=== PATIENT | female | born 1985 | race Two or more races ===

== ENCOUNTER 2018-10-26 14:27 | Outpatient (CLI) | payer OTHER | END 2018-10-26 23:59 | disposition home or self-care (01) | LOC: RAD 14:27 | DX: Z11.1 Encounter for screening for respiratory tuberculosis (principal); R76.11 Nonspecific reaction to tuberculin skin test without active tuberculosis | CPT/HCPCS: 71046 ==

== ENCOUNTER 2020-03-17 09:36 | Emergency (ER) | payer BC, OTHER ==
[~2020-03-17] VITALS: Ht 167.6 cm; Wt 75.0 kg
[2020-03-17] MEDS ORDERED: orphenadrine citrate 60mg/2ml inj. IM ONE (10:55)
[2020-03-17] MEDS ORDERED: ketorolac tromethamine 15mg/ml inj. IM ONE (10:55)
[2020-03-17] MEDS ORDERED: METH-360 PO (11:15)
[2020-03-17] MEDS ORDERED: NAPR-56 PO (11:15)
[2020-03-17 11:27] VITALS: BP 115/66
== END 2020-03-17 11:29 | disposition home or self-care (01) ==
LOC: ER 09:36 → EEVIPCON 09:36 → ER 11:29
DX: S39.012A Strain of muscle, fascia and tendon of lower back, initial encounter (principal); Z79.899 Other long term (current) drug therapy; X50.1XXA Overexertion from prolonged static or awkward postures, initial encounter; Y93.89 Activity, other specified; Y92.89 Other specified places as the place of occurrence of the external cause; Y99.8 Other external cause status
CPT/HCPCS: 96372; 99284; J1885; J2360

== ENCOUNTER 2020-03-19 12:04 | Outpatient (CLI) | payer BC ==
[~2020-03-19 12:04] MED LIST: METH-360 PO; NAPR-56 PO
== END 2020-03-19 23:59 | disposition home or self-care (01) ==
LOC: RAD 12:04
PROVIDERS: ATTEND Nurse Practitioner
DX: M47.817 Spondylosis without myelopathy or radiculopathy, lumbosacral region (principal); M51.27 Other intervertebral disc displacement, lumbosacral region
CPT/HCPCS: 72110; 72120; 72148

== ENCOUNTER 2020-03-25 09:41 | Outpatient (CLI) | payer BC | END 2020-03-25 23:59 | disposition home or self-care (01) | LOC: LAB 09:41 | PROVIDERS: ATTEND Specialist | DX: E06.3 Autoimmune thyroiditis (principal) | CPT/HCPCS: 36415; 84443 ==

== ENCOUNTER 2020-05-11 11:54 | Outpatient (CLI) | payer BC ==
[~2020-05-11 11:54] MED LIST changes: -NAPR-56 PO
[2020-05-11 13:03] LABS: ALANINE AMINOTRANSFERASE 21 U/L (12-78); ALBUMIN 3.8 G/DL (3.4-5.0); ALKALINE PHOSPHATASE 56 IU/L (46-116); ANION GAP 7 (8-16); ASPARTATE AMINO TRANSFERASE 15 U/L (10-37); BILIRUBIN,TOTAL 0.3 MG/DL (0.1-1.0); BLOOD UREA NITROGEN 8 MG/DL (7-18); BUN/CREATININE RATIO 12.3 (6.6-38.0); CALCIUM 9.1 MG/DL (8.5-10.1); CHLORIDE 103 MMOL/L (99-107); CHOL/HDL RATIO 4.8 (0.00-4.99); CHOLESTEROL 242 MG/DL (0-200); CREATININE 0.65 MG/DL (0.40-0.90); GLUCOSE 94 MG/DL (70-104); HDL CHOLESTEROL 50 MG/DL (35-60); LDL CHOLESTEROL 166 MG/DL (50-100); POTASSIUM 3.9 MMOL/L (3.5-5.1); SODIUM 138 MMOL/L (135-145); TOTAL CARBON DIOXIDE 28.1 MMOL/L (24-32); TOTAL PROTEIN 7.8 G/DL (6.4-8.2); TRIGLYCERIDES 100 MG/DL (20-135); eGFR > 90 ML/MIN
[2020-05-11 14:29] LABS: BASOPHILS # (AUTO) 0.1 X10'3 (0-0.2); BASOPHILS % (AUTO) 0.9 % (0-1); EOSINOPHILS # (AUTO) 0.2 X10'3 (0-0.9); EOSINOPHILS % (AUTO) 1.9 % (0-6); HEMATOCRIT 36.8 % (35.0-45.0); HEMOGLOBIN 12.3 g/dl (12.0-16.0); LYMPHOCYTES # (AUTO) 1.7 X10'3 (1.1-4.8); LYMPHOCYTES % (AUTO) 17.8 % (21-51); MEAN CORPUSCULAR HEMOGLOBIN 30.7 PG (27.0-31.0); MEAN CORPUSCULAR HGB CONC 33.3 g/dL (33.0-36.5); MEAN CORPUSCULAR VOLUME 92.2 FL (78-98); MEAN PLATELET VOLUME 7.4 FL (7.4-10.4); MONOCYTES # (AUTO) 0.4 X10'3 (0-0.9); NEUTROPHILS # (AUTO) 7.1 X10'3 (1.8-7.7); NEUTROPHILS % (AUTO) 75.4 % (42-75); PLATELET COUNT 409 X10'3 (140-440); RED BLOOD COUNT 3.99 X10'6 (4.20-5.60); RED CELL DISTRIBUTION WIDTH 12.5 % (11.5-14.5); WHITE BLOOD COUNT 9.4 X10'3 (4.5-11.0)
[2020-05-13 12:05] LABS: IMMUNOGLOBULIN A, QN, SERUM 422 mg/dL (87-352)
== END 2020-05-11 23:59 | disposition home or self-care (01) ==
LOC: LAB 11:54
PROVIDERS: ATTEND Family Medicine
DX: Z00.00 Encounter for general adult medical examination without abnormal findings (principal); Z76.89 Persons encountering health services in other specified circumstances
CPT/HCPCS: 36415; 80053; 80061; 82784; 84439; 84443; 85025

== ENCOUNTER 2020-06-03 11:40 | Outpatient (CLI) | payer BC ==
[2020-06-03 13:49] LABS: RHEUM FACTOR QUAL REFLEX TITER NEGATIVE (Neg)
== END 2020-06-03 23:59 | disposition home or self-care (01) ==
LOC: EEVIPCON → LAB 11:40
PROVIDERS: ATTEND Family Medicine
DX: R76.8 Other specified abnormal immunological findings in serum (principal)
CPT/HCPCS: 36415; 86038; 86430

== ENCOUNTER 2020-06-08 08:41 | Outpatient (CLI) | payer BC | END 2020-06-08 23:59 | disposition home or self-care (01) | LOC: EEVIPCON → RAD 08:41 | PROVIDERS: ATTEND Internal Medicine Gastroenterology | DX: K59.00 Constipation, unspecified (principal) | CPT/HCPCS: 74018 ==

== ENCOUNTER 2020-10-22 09:22 | Outpatient (CLI) | payer BC ==
[~2020-10-22 09:22] MED LIST changes: +iohexol 300mg/ml 100ml inj. ONE
[2020-10-22] MEDS ORDERED: iohexol 300mg/ml 100ml inj. ONE (09:52)
[2020-10-22 11:09] LABS: CLARITY,URINE SLIGHTLY CLOUDY (Clear); COLOR,URINE STRAW (Yellow); GLUCOSE, URINE NEGATIVE (Neg); KETONES,URINE NEGATIVE (Neg); LEUKOCYTE ESTERASE ,URINE NEGATIVE (Neg); NITRITES, URINE NEGATIVE (Neg); OCCULT BLOOD,URINE NEGATIVE (Neg); PROTEIN,URINE NEGATIVE (Neg); UROBILINOGEN,URINE 0.2 E.U/dL (0.2-1.0)
[2020-10-22 11:19] LABS: UA COLLECTION TYPE NON-SPECIFIED
[2020-10-22 11:20] LABS: SQUAMOUS EPITHELIAL CELL,UR MANY /LPF (FEW)
[2020-10-22 11:21] LABS: BACTERIA,URINE FEW /HPF (Neg); RBC,URINE NONE SEEN /HPF (0-2); WBC,URINE NONE SEEN /HPF (0-4)
[2020-10-22 12:24] LABS: BASOPHILS # (AUTO) 0.1 X10'3 (0-0.2); BASOPHILS % (AUTO) 1.2 % (0-1); EOSINOPHILS # (AUTO) 0.1 X10'3 (0-0.9); EOSINOPHILS % (AUTO) 1.9 % (0-6); HEMATOCRIT 36.9 % (35.0-45.0); HEMOGLOBIN 12.3 g/dl (12.0-16.0); LYMPHOCYTES # (AUTO) 1.6 X10'3 (1.1-4.8); LYMPHOCYTES % (AUTO) 21.1 % (21-51); MEAN CORPUSCULAR HEMOGLOBIN 30.3 PG (27.0-31.0); MEAN CORPUSCULAR HGB CONC 33.3 g/dL (33.0-36.5); MEAN PLATELET VOLUME 7.5 FL (7.4-10.4); MONOCYTES # (AUTO) 0.5 X10'3 (0-0.9); MONOCYTES % (AUTO) 6.2 % (2-12); NEUTROPHILS # (AUTO) 5.4 X10'3 (1.8-7.7); NEUTROPHILS % (AUTO) 69.6 % (42-75); PLATELET COUNT 377 X10'3 (140-440); RED BLOOD COUNT 4.05 X10'6 (4.20-5.60); RED CELL DISTRIBUTION WIDTH 12.5 % (11.5-14.5); WHITE BLOOD COUNT 7.8 X10'3 (4.5-11.0)
[2020-10-22 12:45] LABS: ALANINE AMINOTRANSFERASE 23 U/L (12-78); ALBUMIN 3.8 G/DL (3.4-5.0); ALBUMIN/GLOBULIN RATIO 0.9 (1.1-1.5); ALKALINE PHOSPHATASE 66 IU/L (46-116); ANION GAP 11 (8-16); ASPARTATE AMINO TRANSFERASE 16 U/L (10-37); BILIRUBIN,TOTAL 0.4 MG/DL (0.1-1.0); BLOOD UREA NITROGEN 8 MG/DL (7-18); CALCIUM 8.8 MG/DL (8.5-10.1); CHLORIDE 102 MMOL/L (99-107); CHOL/HDL RATIO 4.5 (0.00-4.99); CHOLESTEROL 254 MG/DL (0-200); CREATININE 0.73 MG/DL (0.40-0.90); GLUCOSE 97 MG/DL (70-104); HDL CHOLESTEROL 57 MG/DL (35-60); LDL CHOLESTEROL 180 MG/DL (50-100); POTASSIUM 3.8 MMOL/L (3.5-5.1); SODIUM 140 MMOL/L (135-145); TOTAL CARBON DIOXIDE 27.4 MMOL/L (24-32); TOTAL PROTEIN 7.9 G/DL (6.4-8.2); TRIGLYCERIDES 71 MG/DL (20-135); eGFR > 90 ML/MIN
== END 2020-10-22 23:59 | disposition home or self-care (01) ==
LOC: 64 CT 09:22
PROVIDERS: ATTEND Family Medicine
DX: Z00.00 Encounter for general adult medical examination without abnormal findings (principal); R10.32 Left lower quadrant pain; M51.37 Other intervertebral disc degeneration, lumbosacral region
CPT/HCPCS: 36415; 74177; 80053; 80061; 81001; 82306; 84439; 84443; 85025; Q9967

== ENCOUNTER 2020-10-22 09:28 | Outpatient (CLI) | payer BC ==
[~2020-10-22 09:28] MED LIST changes: -iohexol 300mg/ml 100ml inj. ONE
[2020-10-22 13:10] LABS: HIV ANTIBODY 1&2 RAPID NON-REACTIVE (Neg)
[2020-10-23 09:05] LABS: LUTEINIZING HORMONE 72.4 mIU/mL (.); PROLACTIN 21.9 ng/mL (4.8-23.3)
== END 2020-10-22 23:59 | disposition home or self-care (01) ==
LOC: LAB 09:28
PROVIDERS: ATTEND Specialist
DX: Z01.419 Encounter for gynecological examination (general) (routine) without abnormal findings (principal)
CPT/HCPCS: 36415; 83001; 83002; 84146; 86703; 87491

== ENCOUNTER 2021-03-01 09:49 | Outpatient (CLI) | payer BC | END 2021-03-01 23:59 | disposition home or self-care (01) | LOC: LAB 09:49 | PROVIDERS: ATTEND Specialist | DX: E06.3 Autoimmune thyroiditis (principal) | CPT/HCPCS: 36415; 84443 ==

== ENCOUNTER 2021-06-22 09:35 | Emergency (ER) | payer BC ==
[~2021-06-22] VITALS: Ht 167.6 cm; Wt 75.0 kg
[2021-06-22 09:38] VITALS: BP 125/65
[2021-06-22 10:38] LABS: BASOPHILS # (AUTO) 0.1 X10'3 (0-0.2); EOSINOPHILS # (AUTO) 0.2 X10'3 (0-0.9); EOSINOPHILS % (AUTO) 2.4 % (0-6); HEMATOCRIT 37.4 % (35.0-45.0); HEMOGLOBIN 12.5 g/dl (12.0-16.0); LYMPHOCYTES # (AUTO) 1.3 X10'3 (1.1-4.8); LYMPHOCYTES % (AUTO) 15.9 % (21-51); MEAN CORPUSCULAR HEMOGLOBIN 30.9 PG (27.0-31.0); MEAN CORPUSCULAR HGB CONC 33.4 g/dL (33.0-36.5); MEAN CORPUSCULAR VOLUME 92.4 FL (78-98); MEAN PLATELET VOLUME 7.5 FL (7.4-10.4); MONOCYTES # (AUTO) 0.5 X10'3 (0-0.9); MONOCYTES % (AUTO) 6.7 % (2-12); NEUTROPHILS # (AUTO) 5.9 X10'3 (1.8-7.7); PLATELET COUNT 370 X10'3 (140-440); RED BLOOD COUNT 4.05 X10'6 (4.20-5.60); RED CELL DISTRIBUTION WIDTH 12.4 % (11.5-14.5)
[2021-06-22 10:49] LABS: ASPARTATE AMINO TRANSFERASE 14 U/L (10-37); BILIRUBIN,TOTAL 0.4 MG/DL (0.1-1.0); BLOOD UREA NITROGEN 10 MG/DL (7-18); BUN/CREATININE RATIO 11.6 (6.6-38.0); CALCIUM 9.2 MG/DL (8.5-10.1); CHLORIDE 104 MMOL/L (99-107); CREATININE 0.86 MG/DL (0.40-0.90); GLUCOSE 115 MG/DL (70-104); POTASSIUM 4.2 MMOL/L (3.5-5.1); TOTAL CARBON DIOXIDE 28.5 MMOL/L (24-32); eGFR 75 ML/MIN
[2021-06-22 10:57] LABS: ALANINE AMINOTRANSFERASE 23 U/L (12-78); ALBUMIN 3.8 G/DL (3.4-5.0); ALBUMIN/GLOBULIN RATIO 0.9 (1.1-1.5); ALKALINE PHOSPHATASE 60 IU/L (46-116); ANION GAP 7 (8-16); SODIUM 139 MMOL/L (135-145)
== END 2021-06-22 12:03 | disposition home or self-care (01) ==
LOC: ER 09:35 → EEVIPCON 09:35 → ER 12:03
DX: R07.89 Other chest pain (principal); M79.602 Pain in left arm; R51.9 Headache, unspecified; F41.9 Anxiety disorder, unspecified; Z79.899 Other long term (current) drug therapy
CPT/HCPCS: 36415; 71045; 80053; 84443; 84484; 85025; 93005; 99285

== ENCOUNTER 2021-07-01 09:26 | Outpatient (CLI) | payer BC ==
[2021-07-01 11:25] LABS: D-DIMER < 0.19 MG/L FEU (0-0.50)
[2021-07-01 11:56] LABS: CHOL/HDL RATIO 4.6 (0.00-4.99); CHOLESTEROL 285 MG/DL (0-200); HDL CHOLESTEROL 62 MG/DL (35-60); LDL CHOLESTEROL 195 MG/DL (50-100); TRIGLYCERIDES 63 MG/DL (20-135)
== END 2021-07-01 23:59 | disposition home or self-care (01) ==
LOC: LAB 09:26
PROVIDERS: ATTEND Family Medicine
DX: R07.9 Chest pain, unspecified (principal); E55.9 Vitamin D deficiency, unspecified
CPT/HCPCS: 36415; 80061; 82306; 85379

== ENCOUNTER 2021-11-30 09:45 | Outpatient (CLI) | payer BC | END 2021-11-30 23:59 | disposition home or self-care (01) | LOC: LAB 09:45 | PROVIDERS: ATTEND Specialist | DX: E06.3 Autoimmune thyroiditis (principal) | CPT/HCPCS: 36415; 84443 ==

== ENCOUNTER 2022-02-03 10:11 | Day surgery (SDC) | payer BC ==
[~2022-02-03] VITALS: Ht 167.6 cm; Wt 78.2 kg
[2022-02-03] MEDS ORDERED: fentaNYL/PF 50MCG/1 ML 2ML syringe ONE (10:23)
[2022-02-03] MEDS ORDERED: MIDAZolam 1 MG/ML 5ML VIAL ONE (10:24)
[2022-02-03] MEDS ORDERED: LEVO88TA2 PO (10:25)
[2022-02-03 10:28] VITALS: BP 131/65
[2022-02-03 11:37] VITALS: BP 112/62
[2022-02-03 11:47] VITALS: BP 113/62
[2022-02-03 11:57] VITALS: BP 109/61
== END 2022-02-03 12:12 | disposition home or self-care (01) ==
LOC: GI LAB 10:11
PROVIDERS: ATTEND Internal Medicine Gastroenterology
DX: R10.32 Left lower quadrant pain (principal); K59.00 Constipation, unspecified
CPT/HCPCS: 45378; J2250; J3010; J7030; Z7512; 99152; A4620

== ENCOUNTER 2022-04-23 10:15 | Outpatient (CLI) | payer BC ==
[~2022-04-23 10:15] MED LIST changes: +LEVO88TA2 PO; -METH-360 PO
== END 2022-04-23 23:59 | disposition home or self-care (01) ==
LOC: RAD 10:15
PROVIDERS: ATTEND Family Medicine
DX: M25.512 Pain in left shoulder (principal)
CPT/HCPCS: 73221

== ENCOUNTER 2022-09-28 10:21 | Outpatient (CLI) | payer BC ==
[2022-09-28 11:54] LABS: BASOPHILS # (AUTO) 0.1 X10'3 (0-0.2); BASOPHILS % (AUTO) 0.9 % (0-1); EOSINOPHILS # (AUTO) 0.1 X10'3 (0-0.9); EOSINOPHILS % (AUTO) 1.8 % (0-6); HEMATOCRIT 40.1 % (35.0-45.0); HEMOGLOBIN 13.2 g/dl (12.0-16.0); LYMPHOCYTES # (AUTO) 1.6 X10'3 (1.1-4.8); LYMPHOCYTES % (AUTO) 18.8 % (21-51); MEAN CORPUSCULAR HEMOGLOBIN 30.6 PG (27.0-31.0); MEAN CORPUSCULAR HGB CONC 32.9 g/dL (33.0-36.5); MEAN CORPUSCULAR VOLUME 93.1 FL (78-98); MEAN PLATELET VOLUME 7.5 FL (7.4-10.4); MONOCYTES # (AUTO) 0.7 X10'3 (0-0.9); MONOCYTES % (AUTO) 8.1 % (2-12); NEUTROPHILS # (AUTO) 5.9 X10'3 (1.8-7.7); NEUTROPHILS % (AUTO) 70.4 % (42-75); PLATELET COUNT 339 X10'3 (140-440); RED BLOOD COUNT 4.31 X10'6 (4.20-5.60); RED CELL DISTRIBUTION WIDTH 12.2 % (11.5-14.5); WHITE BLOOD COUNT 8.3 X10'3 (4.5-11.0)
[2022-09-28 12:37] LABS: ALANINE AMINOTRANSFERASE 21 U/L (12-78); ALBUMIN 4.1 G/DL (3.4-5.0); ALKALINE PHOSPHATASE 68 IU/L (46-116); ANION GAP 5 (8-16); ASPARTATE AMINO TRANSFERASE 16 U/L (10-37); BILIRUBIN,TOTAL 0.4 MG/DL (0.1-1.0); BLOOD UREA NITROGEN 8 MG/DL (7-18); BUN/CREATININE RATIO 12.9 (6.6-38.0); C-REACTIVE PROTEIN 1.93 MG/DL (0.0-0.5); CALCIUM 9.5 MG/DL (8.5-10.1); CHLORIDE 104 MMOL/L (99-107); CHOLESTEROL 267 MG/DL (0-200); CREATININE 0.62 MG/DL (0.40-0.90); GLUCOSE 103 MG/DL (70-104); HDL CHOLESTEROL 66 MG/DL (35-60); LDL CHOLESTEROL 167 MG/DL (50-100); POTASSIUM 4.3 MMOL/L (3.5-5.1); SODIUM 140 MMOL/L (135-145); TOTAL PROTEIN 8.3 G/DL (6.4-8.2); TRIGLYCERIDES 85 MG/DL (20-135); eGFR > 90 ML/MIN
== END 2022-09-28 23:59 | disposition home or self-care (01) ==
LOC: RAD 10:21
PROVIDERS: ATTEND Family Medicine
DX: E78.5 Hyperlipidemia, unspecified (principal); R07.89 Other chest pain; R20.2 Paresthesia of skin; M54.12 Radiculopathy, cervical region
CPT/HCPCS: 36415; 80053; 80061; 84439; 84443; 85025; 85651; 86140

== ENCOUNTER 2023-01-11 12:27 | Outpatient (CLI) | payer BC ==
[~2023-01-11 12:27] MED LIST changes: +IBUP-1986 PO
[2023-01-11 13:46] LABS: RHEUM FACTOR QUAL REFLEX TITER NEGATIVE (Neg)
== END 2023-01-11 23:59 | disposition home or self-care (01) ==
LOC: LAB 12:27
PROVIDERS: ATTEND Family Medicine
DX: R70.0 Elevated erythrocyte sedimentation rate (principal)
CPT/HCPCS: 36415; 84550; 85651; 86038; 86430

== ENCOUNTER 2023-03-23 11:57 | Outpatient (CLI) | payer BC | END 2023-03-23 23:59 | disposition home or self-care (01) | LOC: RAD 11:57 | PROVIDERS: ATTEND Internal Medicine Critical Care Medicine | DX: R10.9 Unspecified abdominal pain (principal) | CPT/HCPCS: 71046; 74018 ==

== ENCOUNTER 2023-03-23 12:04 | Outpatient (CLI) | payer BC ==
[2023-03-23 15:33] LABS: BASOPHILS # (AUTO) 0.1 X10'3 (0-0.2); BASOPHILS % (AUTO) 0.9 % (0-1); EOSINOPHILS # (AUTO) 0.3 X10'3 (0-0.9); EOSINOPHILS % (AUTO) 2.7 % (0-6); HEMATOCRIT 37.4 % (35.0-45.0); HEMOGLOBIN 12.5 g/dl (12.0-16.0); LYMPHOCYTES # (AUTO) 2.2 X10'3 (1.1-4.8); LYMPHOCYTES % (AUTO) 22.3 % (21-51); MEAN CORPUSCULAR HEMOGLOBIN 30.9 PG (27.0-31.0); MEAN CORPUSCULAR HGB CONC 33.5 g/dL (33.0-36.5); MEAN CORPUSCULAR VOLUME 92.1 FL (78-98); MEAN PLATELET VOLUME 8.6 FL (7.4-10.4); MONOCYTES # (AUTO) 0.8 X10'3 (0-0.9); MONOCYTES % (AUTO) 7.7 % (2-12); NEUTROPHILS # (AUTO) 6.7 X10'3 (1.8-7.7); NEUTROPHILS % (AUTO) 66.4 % (42-75); PLATELET COUNT 373 X10'3 (140-440); RED BLOOD COUNT 4.06 X10'6 (4.20-5.60); RED CELL DISTRIBUTION WIDTH 12.3 % (11.5-14.5)
[2023-03-23 15:44] LABS: ALANINE AMINOTRANSFERASE 20 U/L (12-78); ALBUMIN 3.7 G/DL (3.4-5.0); ALBUMIN/GLOBULIN RATIO 0.9 (1.1-1.5); ALKALINE PHOSPHATASE 61 IU/L (46-116); ANION GAP 11 (8-16); ASPARTATE AMINO TRANSFERASE 20 U/L (10-37); BILIRUBIN,TOTAL 0.3 MG/DL (0.1-1.0); BLOOD UREA NITROGEN 9 MG/DL (7-18); BUN/CREATININE RATIO 11.1 (10.0-20.0); CALCIUM 9.4 MG/DL (8.5-10.1); CHLORIDE 102 MMOL/L (99-107); CREATININE 0.81 MG/DL (0.40-0.90); GLUCOSE 122 MG/DL (70-104); LIPASE 130 U/L (73-393); POTASSIUM 3.6 MMOL/L (3.5-5.1); SODIUM 138 MMOL/L (135-145); TOTAL CARBON DIOXIDE 25.2 MMOL/L (24-32); TOTAL PROTEIN 7.6 G/DL (6.4-8.2); eGFR 79 ML/MIN
== END 2023-03-23 23:59 | disposition home or self-care (01) ==
LOC: LAB 12:04
PROVIDERS: ATTEND Internal Medicine Gastroenterology
DX: R10.12 Left upper quadrant pain (principal)
CPT/HCPCS: 36415; 80053; 83690; 85025; 87338

== ENCOUNTER 2023-03-23 12:09 | Outpatient (CLI) | payer BC | END 2023-03-23 23:59 | disposition home or self-care (01) | LOC: LAB 12:09 | PROVIDERS: ATTEND Specialist | DX: E06.3 Autoimmune thyroiditis (principal) | CPT/HCPCS: 36415; 84443 ==

== ENCOUNTER 2023-04-12 09:21 | Outpatient (CLI) | payer BC ==
[~2023-04-12 09:21] MED LIST changes: +iohexol 300mg/ml 100ml inj. ONE
== END 2023-04-12 23:59 | disposition home or self-care (01) ==
LOC: RAD 09:21
PROVIDERS: ATTEND Family Medicine
DX: K59.04 Chronic idiopathic constipation (principal)
CPT/HCPCS: 74177; J3490; Q9967

== ENCOUNTER 2023-05-05 09:33 | Emergency (ER) | payer BC ==
[~2023-05-05] VITALS: Ht 162.6 cm; Wt 63.6 kg
[~2023-05-05 09:33] MED LIST changes: -iohexol 300mg/ml 100ml inj. ONE
[2023-05-05 10:05] VITALS: BP 133/74; PULSE 74; RESP 18; TEMP 98.6; O2SAT 100
[2023-05-05] MEDS ORDERED: TETanus/Pertussis (Acell)/Diphther VAC/PF (Tdap-Adult) 0.5ml syringe IMVAC ONE (10:45)
[2023-05-05] MEDS ORDERED: NAPR-1154 PO (11:02)
[2023-05-05] MEDS ORDERED: ibuprofen tablet 400 MG TABLET PO ONE (11:50)
[2023-05-05] MEDS ORDERED: ibuprofen 200mg tablet PO ONE (11:50)
--- NOTE | 2023-05-05 11:50 | NUR ---
SLING PLACED PER ORDER
--- NOTE | 2023-05-05 11:52 | NUR ---
DR FIELDS AT BEDSIDE
== END 2023-05-05 12:09 | disposition home or self-care (01) ==
LOC: ER 09:33
DX: S40.012A Contusion of left shoulder, initial encounter (principal); S60.811A Abrasion of right wrist, initial encounter; S50.312A Abrasion of left elbow, initial encounter; Z79.1 Long term (current) use of non-steroidal anti-inflammatories (NSAID); Z79.899 Other long term (current) drug therapy; W19.XXXA Unspecified fall, initial encounter; Y93.89 Activity, other specified; Y92.89 Other specified places as the place of occurrence of the external cause; Y99.8 Other external cause status
CPT/HCPCS: 73030; 90471; 90715; 99283; A6449

== ENCOUNTER 2023-06-13 11:29 | Day surgery (SDC) | payer BC ==
[~2023-06-13] VITALS: Ht 167.6 cm; Wt 78.1 kg
[~2023-06-13 11:29] MED LIST changes: +NAPR-1154 PO
[2023-06-13 11:46] VITALS: BP 120/68; PULSE 70; RESP 21
[2023-06-13 12:47] VITALS: BP 114/59; PULSE 65; RESP 16; O2SAT 100
== END 2023-06-13 12:55 | disposition home or self-care (01) ==
LOC: GI LAB 11:29
PROVIDERS: ATTEND Internal Medicine Gastroenterology
DX: R93.3 Abnormal findings on diagnostic imaging of other parts of digestive tract (principal); R10.32 Left lower quadrant pain; K63.89 Other specified diseases of intestine; E03.9 Hypothyroidism, unspecified; Z79.899 Other long term (current) drug therapy
CPT/HCPCS: 45330; Z7512

== ENCOUNTER 2023-08-01 10:23 | Outpatient (CLI) | payer BC ==
[~2023-08-01 10:23] MED LIST changes: -IBUP-1986 PO; -NAPR-1154 PO
[2023-08-01 12:18] LABS: HEMOGLOBIN A1C 5.9 % (4.5-6.2)
[2023-08-01 12:20] LABS: THYROID STIMULATING HORMONE 0.85 ulU/ml (0.34-4.50)
== END 2023-08-01 23:59 | disposition home or self-care (01) ==
LOC: RAD 10:23
PROVIDERS: ATTEND Specialist
DX: E06.3 Autoimmune thyroiditis (principal); Z83.3 Family history of diabetes mellitus
CPT/HCPCS: 36415; 83036; 84443

== ENCOUNTER 2023-12-20 10:23 | Emergency (ER) | payer BC ==
[~2023-12-20] VITALS: Ht 167.6 cm; Wt 77.3 kg
[2023-12-20] MEDS ORDERED: dexamethasone sod phosphate 10mg/ml inj IV STA (11:34)
[2023-12-20] MEDS ORDERED: epiNEPHrine 1 mg/ml inj IM STA (11:34)
[2023-12-20] MEDS ORDERED: diphenhydrAMINE 50 mg/ml inj IV ONE (11:35)
[2023-12-20] MEDS ORDERED: FLUT16SP11 BOTHNARES (11:36)
[2023-12-20] MEDS ORDERED: SODI30SP3 BOTHNARES (11:36)
[2023-12-20 11:51] VITALS: BP 147/81; PULSE 86; RESP 14; TEMP 98; O2SAT 99
[2023-12-20] MEDS ORDERED: famotidine/PF IV inj 20 MG in normal saline 100ml IV soln 100 ML IV SCH (20:00)
== END 2023-12-20 11:52 | disposition home or self-care (01) ==
LOC: ER 10:23
DX: J30.2 Other seasonal allergic rhinitis (principal); E03.9 Hypothyroidism, unspecified
CPT/HCPCS: 99283

== ENCOUNTER 2024-05-02 12:31 | Outpatient (CLI) | payer BC ==
[~2024-05-02 12:31] MED LIST changes: +FLUT16SP11 BOTHNARES; +SODI30SP3 BOTHNARES
== END 2024-05-02 23:59 | disposition home or self-care (01) ==
LOC: LAB 12:31
PROVIDERS: ATTEND Specialist
DX: E06.3 Autoimmune thyroiditis (principal)
CPT/HCPCS: 36415; 84443

== ENCOUNTER 2024-08-12 09:57 | Emergency (ER) | payer BC ==
[~2024-08-12] VITALS: Ht 167.6 cm; Wt 78.6 kg
[2024-08-12 10:41] LABS: URINE HCG NEGATIVE (NEG)
[2024-08-12 10:45] LABS: BILIRUBIN,URINE NEGATIVE (Neg); CLARITY,URINE CLOUDY (Clear); COLOR,URINE YELLOW (Yellow); GLUCOSE, URINE NEGATIVE (Neg); KETONES,URINE NEGATIVE (Neg); LEUKOCYTE ESTERASE ,URINE SMALL (Neg); NITRITES, URINE NEGATIVE (Neg); OCCULT BLOOD,URINE LARGE (Neg); PROTEIN,URINE TRACE mg/dl (Neg); UROBILINOGEN,URINE 0.2 E.U/dL (0.2-1.0)
[2024-08-12 10:59] LABS: UA COLLECTION TYPE CLN CATCH MIDSTREAM
[2024-08-12 11:03] LABS: SQUAMOUS EPITHELIAL CELL,UR FEW /LPF (FEW)
[2024-08-12 11:04] LABS: WBC,URINE 50-100 /HPF (0-4)
[2024-08-12 11:09] LABS: BACTERIA,URINE 2+ /HPF (Neg)
[2024-08-12] MEDS ORDERED: NITR100C PO (11:29)
[2024-08-12 11:32] VITALS: BP 110/76; PULSE 86; RESP 14; TEMP 98; O2SAT 100
[2024-08-12] MEDS: nitrofurantoin macrocrystal 50mg capsule PO ONE (11:48)
[2024-08-12] MEDS ORDERED: PHEN-786 PO (15:08)
== END 2024-08-12 11:49 | disposition home or self-care (01) ==
LOC: ER 09:58
DX: N39.0 Urinary tract infection, site not specified (principal); E03.9 Hypothyroidism, unspecified
CPT/HCPCS: 81001; 81025; 87077; 87088; 87186; 99283

== ENCOUNTER 2024-12-03 10:29 | Outpatient (CLI) | payer BC ==
[~2024-12-03 10:29] MED LIST changes: +NITR100C PO; +PHEN-786 PO
== END 2024-12-03 23:59 | disposition home or self-care (01) ==
LOC: LAB 10:29
PROVIDERS: ATTEND Specialist
DX: R70.0 Elevated erythrocyte sedimentation rate (principal); E78.5 Hyperlipidemia, unspecified; R73.03 Prediabetes; E55.9 Vitamin D deficiency, unspecified; N28.89 Other specified disorders of kidney and ureter; E03.9 Hypothyroidism, unspecified
CPT/HCPCS: 36415; 86592; 87491; 87535; 87538

== ENCOUNTER 2024-12-03 10:34 | Outpatient (CLI) | payer BC ==
[2024-12-03 12:55] LABS: BASOPHILS # (AUTO) 0.1 X10'3 (0-0.2); BASOPHILS % (AUTO) 0.8 % (0-1); EOSINOPHILS # (AUTO) 0.2 X10'3 (0-0.9); EOSINOPHILS % (AUTO) 2.2 % (0-6); HEMATOCRIT 38.6 % (35.0-45.0); HEMOGLOBIN 12.8 g/dl (12.0-16.0); LYMPHOCYTES # (AUTO) 1.6 X10'3 (1.1-4.8); LYMPHOCYTES % (AUTO) 20.2 % (21-51); MEAN CORPUSCULAR HEMOGLOBIN 30.3 PG (27.0-31.0); MEAN CORPUSCULAR HGB CONC 33.2 g/dL (33.0-36.5); MEAN CORPUSCULAR VOLUME 91.1 FL (78-98); MEAN PLATELET VOLUME 7.7 FL (7.4-10.4); MONOCYTES # (AUTO) 0.6 X10'3 (0-0.9); MONOCYTES % (AUTO) 7.8 % (2-12); NEUTROPHILS # (AUTO) 5.5 X10'3 (1.8-7.7); PLATELET COUNT 348 X10'3 (140-440); RED BLOOD COUNT 4.23 X10'6 (4.20-5.60); RED CELL DISTRIBUTION WIDTH 12.5 % (11.5-14.5); WHITE BLOOD COUNT 7.9 X10'3 (4.5-11.0)
[2024-12-03 13:12] LABS: BILIRUBIN,URINE NEGATIVE (Neg); CLARITY,URINE CLEAR (Clear); COLOR,URINE STRAW (Yellow); GLUCOSE, URINE NEGATIVE (Neg); KETONES,URINE NEGATIVE (Neg); LEUKOCYTE ESTERASE ,URINE NEGATIVE (Neg); NITRITES, URINE NEGATIVE (Neg); OCCULT BLOOD,URINE NEGATIVE (Neg); PROTEIN,URINE NEGATIVE (Neg); UROBILINOGEN,URINE 0.2 E.U/dL (0.2-1.0)
[2024-12-03 13:15] LABS: UA COLLECTION TYPE CLN CATCH MIDSTREAM
[2024-12-03 13:19] LABS: HEMOGLOBIN A1C 5.8 % (4.5-6.2)
[2024-12-03 13:20] LABS: ALANINE AMINOTRANSFERASE 27 U/L (12-78); ALBUMIN 3.9 G/DL (3.4-5.0); ALKALINE PHOSPHATASE 69 IU/L (46-116); ANION GAP 8 (8-16); ASPARTATE AMINO TRANSFERASE 16 U/L (10-37); BILIRUBIN,TOTAL 0.4 MG/DL (0.1-1.0); BLOOD UREA NITROGEN 10 MG/DL (7-18); BUN/CREATININE RATIO 16.4 (10.0-20.0); CALCIUM 8.8 MG/DL (8.5-10.1); CHLORIDE 103 MMOL/L (99-107); CHOL/HDL RATIO 4.1 (0.00-4.99); CHOLESTEROL 255 MG/DL (0-200); CREATININE 0.61 MG/DL (0.40-0.90); FREE T4 (FREE THYROXINE) 1.11 NG/DL (0.73-1.40); GLUCOSE 92 MG/DL (70-104); HDL CHOLESTEROL 62 MG/DL (35-60); LDL CHOLESTEROL 166 MG/DL (50-100); POTASSIUM 3.9 MMOL/L (3.5-5.1); SODIUM 138 MMOL/L (135-145); THYROID STIMULATING HORMONE 1.25 ulU/ml (0.34-4.50); TOTAL CARBON DIOXIDE 27.4 MMOL/L (24-32); TOTAL PROTEIN 7.7 G/DL (6.4-8.2); TRIGLYCERIDES 74 MG/DL (20-135); eGFR > 90 ML/MIN
== END 2024-12-03 23:59 | disposition home or self-care (01) ==
LOC: LAB 10:34
PROVIDERS: ATTEND Family Medicine
DX: E03.9 Hypothyroidism, unspecified (principal); R70.0 Elevated erythrocyte sedimentation rate; E78.5 Hyperlipidemia, unspecified; R73.03 Prediabetes; E55.9 Vitamin D deficiency, unspecified; N28.89 Other specified disorders of kidney and ureter
CPT/HCPCS: 36415; 80053; 80061; 81003; 82652; 83036; 84439; 84443; 85025; 85651

== ENCOUNTER 2025-03-21 11:39 | Outpatient (CLI) | payer BC ==
--- NOTE | 2025-03-21 12:47 | RADIOLOGY REPORT ---
EXAM: DI KNEE 3 VWS, DI KNEE 3 VWS CLINICAL INDICATION: BILAT KNEE PAIN TECHNIQUE: DI KNEE 3 VWS, DI KNEE 3 VWS Comparison: None FINDINGS/IMPRESSION: There is no evidence of acute fracture or dislocation. Moderate bilateral tricompartmental joint space narrowing The alignment is anatomical. There is no radiopaque foreign body.
== END 2025-03-21 23:59 | disposition home or self-care (01) ==
LOC: RAD 11:39
PROVIDERS: ATTEND Internal Medicine Critical Care Medicine
DX: M25.561 Pain in right knee (principal); M25.562 Pain in left knee
CPT/HCPCS: 73562

== ENCOUNTER 2025-06-03 11:10 | Outpatient (CLI) | payer BC ==
[2025-06-03 14:02] LABS: MEAN PLATELET VOLUME 7.3 FL (7.4-10.4); RED CELL DISTRIBUTION WIDTH 12.3 % (11.5-14.5)
== END 2025-06-03 23:59 | disposition home or self-care (01) ==
LOC: RAD 11:10
PROVIDERS: ATTEND Student in an Organized Health Care Education/Training Program
DX: Z13.1 Encounter for screening for diabetes mellitus (principal); R53.83 Other fatigue
CPT/HCPCS: 36415; 83036; 85025; 85651; 86038

== ENCOUNTER 2025-06-03 11:21 | Outpatient (CLI) | payer BC | END 2025-06-03 23:59 | disposition home or self-care (01) | LOC: RAD 11:21 | PROVIDERS: ATTEND Specialist | DX: E06.3 Autoimmune thyroiditis (principal) | CPT/HCPCS: 36415; 84443 ==